=== PATIENT | male | born 1940 | race Two or more races ===

== ENCOUNTER 2024-11-10 12:23 | Inpatient (IN) | payer MEDICARE, OTHER ==
[~2024-11-10] VITALS: Ht 167.6 cm; Wt 66.2 kg
[2024-11-10 14:19] LABS: BASOPHILS % (AUTO) 0.2 % (0.0-2.0); EOSINOPHILS # (AUTO) 0.1 K/uL (0.0-0.7); EOSINOPHILS % (AUTO) 1.4 % (0.0-6.0); HEMATOCRIT 37 % (39-51); HEMOGLOBIN 12.4 g/dL (13.5-17.5); LYMPHOCYTES # (AUTO) 1.1 K/uL (0.8-4.8); LYMPHOCYTES % (AUTO) 15.2 % (20.0-44.0); MEAN CORPUSCULAR HEMOGLOBIN 31 PG (26.0-33.0); MEAN CORPUSCULAR HGB CONC 34 g/dl (31.0-36.0); MEAN CORPUSCULAR VOLUME 92 fL (80-96); MONOCYTES # (AUTO) 0.8 K/uL (0.1-1.30); NEUTROPHILS % (AUTO) 72.2 % (43.0-81.0); PLATELET COUNT (AUTO) 113 K/uL (150-450); RED BLOOD CELL COUNT(AUTO) 3.96 MIL/uL (4.5-6.0); RED CELL DISTRIBUTION WIDTH 13.6 % (11.5-15.0)
[2024-11-10] MEDS: IV NS 0.9% 1,000 ML BAG IV ONE (14:25)
[2024-11-10 14:29] LABS: CALCIUM, SERUM 9.7 mg/dL (8.5-10.1); CARBON DIOXIDE 28 mmol/L (21-32); CHLORIDE 108 mmol/L (98-107); CREATININE 1.5 mg/dL (0.6-1.3); GLUCOSE 120 mg/dL (74-106); POTASSIUM 4.3 mmol/L (3.5-5.1); SODIUM SERUM 144 mmol/L (136-145); UREA NITROGEN, BLOOD 20 mg/dL (7-18)
[2024-11-10 14:30] LABS: SERUM AMMONIA 20 umol/L (11-32)
[2024-11-10 14:34] LABS: ALANINE AMINOTRANSFERASE 26 U/L (12-78); ALBUMIN 3.9 g/dL (3.4-5.0); ALCOHOL, BLOOD < 3 mg/dL (0-10); ALKALINE PHOSPHATASE 110 U/L (46-116); ASPARTATE AMINOTRANSFERASE 16 U/L (15-37); BILIRUBIN,DIRECT 0.3 mg/dL (0.0-0.2); BILIRUBIN,TOTAL 0.9 mg/dL (0.2-1.0); TOTAL PROTEIN, SERUM 7.8 g/dL (6.4-8.2)
[2024-11-10 14:37] LABS: SALICYLATE 0.3 mg/dL (2.8-20.0)
[2024-11-10 14:38] LABS: ACETAMINOPHEN 0 ug/ml (10-30)
[2024-11-10] MEDS ORDERED: QUET50TA PO (15:49)
[2024-11-10] MEDS ORDERED: ACET325T53 PO (15:49)
[2024-11-10] MEDS ORDERED: MAGN400O6 PO (15:49)
[2024-11-10] MEDS ORDERED: AMLO-212 PO (15:49)
[2024-11-10] MEDS ORDERED: CYAN100096 PO (15:49)
[2024-11-10] MEDS ORDERED: MEMA5TAB PO (15:49)
[2024-11-10] MEDS ORDERED: ESCI10TA PO (15:49)
[2024-11-10] MEDS ORDERED: FERROUS SULFATE PO (15:49)
[2024-11-10] MEDS ORDERED: QUET100T PO (15:49)
[2024-11-10] MEDS ORDERED: ASPI-1420 PO (15:49)
[2024-11-10] MEDS ORDERED: ATOR40TA PO (15:49)
[2024-11-10] MEDS ORDERED: MAG HYDROX/AL HYDROX/SIMETH 30 ML UDC PO PRN (16:00)
[2024-11-10] MEDS ORDERED: MAGNESIUM HYDROXIDE 30 ML UDC PO PRN (16:00)
[2024-11-10] MEDS ORDERED: ONDANSETRON HCL/PF 4 MG/2 ML VIAL IVP PRN (16:00)
[2024-11-10] MEDS ORDERED: Z GUARD REMEDY 4 OZ OINT TP PRN (16:00)
[2024-11-10] MEDS ORDERED: TEMAZEPAM 15 MG CAPSULE PO PRN (16:00)
[2024-11-10] MEDS: IV NS 0.9% 1,000 ML IV PRN (19:30)
[2024-11-10 20:00] VITALS: BP 146/98; TEMP 99.3; O2SAT 98
[2024-11-10] MEDS: ATORVASTATIN 40 MG TABLET PO SCH (22:21)
[2024-11-10] MEDS: QUETIAPINE FUMARATE 100 MG TABLET PO SCH (22:21)
[2024-11-10] MEDS ORDERED: VANCOMYCIN 1 GM /D5W 250 ML PB IV ONE (22:22)
[2024-11-10] MEDS: VANCOMYCIN 1 GM in IV NS 0.9% 250 ML IV ONE (22:29)
[2024-11-10] MEDS ORDERED: CEFEPIME 1 GM VIAL ONE (23:16)
[2024-11-10] MEDS: CEFEPIME 2 GM in IV D5W 100 ML IV SCH (23:21)
[2024-11-11 07:25] LABS: BASOPHILS % (AUTO) 0.2 % (0.0-2.0); EOSINOPHILS # (AUTO) 0.1 K/uL (0.0-0.7); EOSINOPHILS % (AUTO) 2.2 % (0.0-6.0); HEMATOCRIT 35 % (39-51); HEMOGLOBIN 11.7 g/dL (13.5-17.5); LYMPHOCYTES # (AUTO) 1.2 K/uL (0.8-4.8); LYMPHOCYTES % (AUTO) 19.4 % (20.0-44.0); MEAN CORPUSCULAR HEMOGLOBIN 31 PG (26.0-33.0); MEAN CORPUSCULAR HGB CONC 34 g/dl (31.0-36.0); MEAN CORPUSCULAR VOLUME 93 fL (80-96); MONOCYTES # (AUTO) 0.8 K/uL (0.1-1.30); MONOCYTES % (AUTO) 12.2 % (2.0-12.0); NEUTROPHILS # (AUTO) 4.1 K/uL (1.8-8.9); PLATELET COUNT (AUTO) 110 K/uL (150-450); RED BLOOD CELL COUNT(AUTO) 3.78 MIL/uL (4.5-6.0); RED CELL DISTRIBUTION WIDTH 13.4 % (11.5-15.0); WHITE BLOOD COUNT (AUTO) 6.2 K/uL (4.3-11.0)
[2024-11-11] MEDS: PANTOPRAZOLE 40 MG TABLET.DR PO SCH (07:51)
[2024-11-11 08:00] VITALS: BP 146/74; TEMP 97.8; O2SAT 98
[2024-11-11] MEDS: FERROUS SULFATE UDC 300 MG/5 ML UDC PO SCH (08:11)
[2024-11-11] MEDS: ASPIRIN EC 81 MG TABLET.DR PO SCH (08:11)
[2024-11-11] MEDS: AMLODIPINE BESYLATE 5 MG TABLET PO SCH (08:12)
[2024-11-11] MEDS: MEMANTINE HCL 5 MG TABLET PO SCH (08:12)
[2024-11-11] MEDS: CYANOCOBALAMIN 500 MCG TABLET PO SCH (08:12)
[2024-11-11] MEDS: ESCITALOPRAM OXALATE (10 MG) 10 MG TABLET PO SCH (08:21)
[2024-11-11 08:47] LABS: CHOLESTEROL 71 mg/dL (<200); HDL CHOLESTEROL 40 mg/dL (40-60); LDL 29 mg/dL (0-99); TRIGLYCERIDES 56 mg/dL (30-150)
[2024-11-11] MEDS ORDERED: QUETIAPINE FUMARATE 25 MG TABLET PO SCH (09:00)
[2024-11-11] MEDS: CEFEPIME 2 GM in IV D5W 100 ML IV SCH (09:02)
[2024-11-11 10:14] LABS: CALCIUM, SERUM 8.8 mg/dL (8.5-10.1); CARBON DIOXIDE 28 mmol/L (21-32); CHLORIDE 108 mmol/L (98-107); CREATININE 1.4 mg/dL (0.6-1.3); GLUCOSE 101 mg/dL (74-106); POTASSIUM 3.4 mmol/L (3.5-5.1); SODIUM SERUM 143 mmol/L (136-145); UREA NITROGEN, BLOOD 16 mg/dL (7-18)
[2024-11-11 10:28] LABS: MAGNESIUM 2.3 mg/dL (1.8-2.4); PHOSPHORUS 2.9 mg/dL (2.5-4.9)
[2024-11-11 16:00] VITALS: BP 150/80; TEMP 99.9; O2SAT 98
[2024-11-11] MEDS: POTASSIUM CHLORIDE 20 MEQ TAB.PRT.SR PO SCH (17:32)
[2024-11-11 20:00] VITALS: BP 108/66; TEMP 98.1; O2SAT 95
[2024-11-11] MEDS: VANCOMYCIN 1 GM in IV D5W 250ml IV SCH (21:51)
[2024-11-12 06:49] LABS: CALCIUM, SERUM 7.8 mg/dL (8.5-10.1); CREATININE 1.2 mg/dL (0.6-1.3); POTASSIUM 3.5 mmol/L (3.5-5.1)
[2024-11-12 08:00] VITALS: BP 137/100; TEMP 99.5; O2SAT 98
[2024-11-12 16:00] VITALS: BP 108/70; TEMP 99; O2SAT 98
[2024-11-12 20:00] VITALS: BP 150/73; TEMP 98.8; O2SAT 98
[2024-11-13 07:00] VITALS: BP 141/82; TEMP 97.4; O2SAT 99
[2024-11-13] MEDS: PANTOPRAZOLE 40 MG/PACK PACK PO SCH (08:39)
[2024-11-13 11:39] LABS: CALCIUM, SERUM 8.4 mg/dL (8.5-10.1); CREATININE 1.3 mg/dL (0.6-1.3); POTASSIUM 3.4 mmol/L (3.5-5.1)
[2024-11-13] MEDS: POTASSIUM CHLORIDE 20 MEQ POWDER PACKET PO SCH (13:16)
[2024-11-13] MEDS: POTASSIUM CL. PREMIX PERIPHER. 50 ML IV SCH (14:10)
[2024-11-13] MEDS: ACETAMINOPHEN 325 MG TABLET PO PRN (14:36)
[2024-11-13 16:00] VITALS: BP 144/99; TEMP 97.9; O2SAT 99
[2024-11-13] MEDS: OLANZAPINE 2.5 MG TABLET PO SCH (16:18)
[2024-11-13 20:00] VITALS: BP 156/90; TEMP 99.3; O2SAT 95
[2024-11-13] MEDS: MIRTAZAPINE 15 MG TABLET PO SCH (21:34)
[2024-11-14 07:00] LABS: CALCIUM, SERUM 8.2 mg/dL (8.5-10.1); CREATININE 1.2 mg/dL (0.6-1.3); PHOSPHORUS 2.4 mg/dL (2.5-4.9); POTASSIUM 3.5 mmol/L (3.5-5.1)
[2024-11-14 07:30] VITALS: BP 158/95; TEMP 98.8; O2SAT 99
[2024-11-14] MEDS: ENSURE ENLIVE 237 ML LIQUID (VANILLA) PO SCH (11:00)
[2024-11-14] MEDS: K PHOS NEUTRAL 250 MG TABLET PO ONE (15:13)
== END 2024-11-14 15:48 | DRG 177 ==
LOC: ER 12:23 → MED 16:09
PROVIDERS: ADMIT Nurse Practitioner Acute Care; ATTEND Nurse Practitioner Acute Care
DX: J15.69 Pneumonia due to other Gram-negative bacteria (principal); N17.0 Acute kidney failure with tubular necrosis; F02.83 Dementia in other diseases classified elsewhere, unspecified severity, with mood disturbance; F33.2 Major depressive disorder, recurrent severe without psychotic features; E86.0 Dehydration; R62.7 Adult failure to thrive; E78.5 Hyperlipidemia, unspecified; H91.13 Presbycusis, bilateral; G30.9 Alzheimer's disease, unspecified; F94.0 Selective mutism; Z66 Do not resuscitate; Z79.899 Other long term (current) drug therapy; Z95.2 Presence of prosthetic heart valve; Z79.82 Long term (current) use of aspirin; I12.9 Hypertensive chronic kidney disease with stage 1 through stage 4 chronic kidney disease, or unspecified chronic kidney disease; N18.9 Chronic kidney disease, unspecified; I44.7 Left bundle-branch block, unspecified; N27.1 Small kidney, bilateral
CPT/HCPCS: 36415; 70450-TC; 71045-TC; 76770-TC; 80048-TC; 80061-TC; 80076-TC; 80202-TC; 82140-TC; 82962-TC; 83605-TC; 83735-TC; 84100-TC; 84443-TC; 84484-TC; 85025-TC; 87040-TC; 87081-TC; 92526; 92611-TC; 97110-TC; 97112-TC; 97116-TC; 97530-TC; 97535-TC; A4223; G0378; G0480; J0692; J3370; J3480; J7030; J7050; J7060